=== PATIENT | male | born 1980 | race Caucasian/White ===

== ENCOUNTER 2021-09-25 14:05 | Emergency (ER) | payer OTHER, SELFPAY ==
[2021-09-25 14:11] VITALS: BP 135/68; PULSE 85; RESP 18; TEMP 36.8; O2SAT 98; BMI 35.4
--- NOTE | 2021-09-25 14:28 | ED.GENADULT ---
HPI - General Adult General Chief complaint: Animal Bite Stated complaint: cat bite Time Seen by Provider: 09/25/21 14:28 Source: patient Limitations: no limitations History of Present Illness HPI narrative: Patient presents to the ER after being bit and scratched by his own cat. Patient's CT is a house caput is not vaccinated. Patient received CT as a BB from an unknown source on Facebook. Incident occurred on Wednesday. Patient has no prior history of getting the rabies vaccine. Patient denies any allergies at this time no other complaints. Related Data Previous Rx's Medication Instructions Recorded amoxicillin 500 mg-potassium 1 tab PO TID #30 tab 09/25/21 clavulanate 125 mg tablet (Augmentin) Allergies Allergy/AdvReac Type Severity Reaction Status Date / Time No Known Allergies Allergy Unverified 07/11/20 16:18 Review of Systems Constitutional: Constitutional: Denies chills and Denies fever(s) Cardiovascular: Cardiovascular: Denies chest pain and Denies dyspnea Respiratory: Respiratory: Denies dyspnea Gastrointestinal: Gastrointestinal: Denies nausea and Denies vomiting Integumentary/Breasts: Comments: Multiple scratches to the right lower extremity 3 small puncture wounds are well healed on the right thigh PMFSH Past Medical History Attestation statement: The following information was validated with the patient. Social History Social History Advance Directives: No Advance Directives Information Provided: No Physical Exam Vital Signs: Vital Signs: Last Vital Signs Temp 98.3 F 09/25/21 14:11 Pulse 85 09/25/21 14:11 Resp 18 09/25/21 14:11 BP 135/68 09/25/21 14:11 Pulse Ox 98 09/25/21 14:11 BMI result Body Mass Index 35.4 vital signs have been reviewed as normal and appeared to be correct. Blood pressure normal. Heart rate normal. Respiration rate normal. Temperature normal. Oxygen saturation normal. Appearance: Alert. Oriented X3. No acute distress. Head: Normal external exam. Eyes: PERRLA. EOMI. Conjunctiva and sclera normal. Eyelids normal. ENT: Pharynx normal. Uvula midline. Moist mucous membranes. Neck: Soft full range of motion, no JVD CVS: Heart regular rate and rhythm no murmurs and rubs Respiratory: Breath sounds are clear to auscultation bilaterally. No accessory muscle use noted. Skin: Right leg scratch to the left lateral cabrera approximately 5-6 cm scratch to the quadriceps area 3-4 puncture wounds proximal to the right knee wounds are healing as incident happened on Wednesday Extremities: Patient is moving all extremities purposely Neuro: Oriented X 3. No motor deficit. No sensory deficit. Reflexes normal. Course Course Course Narrative: Cat bite Scratches Rabies vaccine early cellulitis 1 mL rabies vaccine IM 2100 units of rabies immune globulin Patient understands he needs to return for follow-up previous vaccine Discharge Plan Discharge Clinical Impression: Cat bite Qualifiers: Encounter type: initial encounter Qualified Code(s): W55.01XA - Bitten by cat, initial encounter Patient Disposition: Home, Self-Care Instructions: Animal Bite (ED), Rabies (ED) Additional Instructions: Return as directed by nursing for rabies vaccine Antibiotics as directed Return if increased redness fever chills Prescriptions: New amoxicillin-pot clavulanate [Augmentin] 500-125 mg tablet 1 tab PO TID Qty: 30 RF: 0
[2021-09-25 14:32] VITALS: BMI 35.3
[2021-09-25] MEDS: Rabies Immune Globulin/PF 900 UNIT/3 ML VIAL 2100 UNIT IM (14:57)
[2021-09-25] MEDS: Rabies Vaccine (PCEC)/PF 1 ML VIAL IM (15:00)
== END 2021-09-25 15:17 | disposition home or self-care (01) ==
PROVIDERS: Emergency Provider Emergency Medicine
DX: S71.151A Open bite, right thigh, initial encounter (principal); W55.01XA Bitten by cat, initial encounter; Y93.9 Activity, unspecified; Y92.9 Unspecified place or not applicable; Y99.9 Unspecified external cause status; Z20.3 Contact with and (suspected) exposure to rabies
CPT/HCPCS: 90375; 90471; 90472; 90675; 96372; 99283; 99284

== ENCOUNTER 2021-09-29 16:00 | Outpatient (REF) | payer OTHER, SELFPAY | END 2021-09-29 16:01 | disposition home or self-care (01) | LOC: HO.MDS 16:00 | PROVIDERS: Visit Provider Physician Assistant | DX: Z29.14 Encounter for prophylactic rabies immune globulin (principal); S81.851D Open bite, right lower leg, subsequent encounter; S80.811D Abrasion, right lower leg, subsequent encounter; W55.01XD Bitten by cat, subsequent encounter; W55.03XD Scratched by cat, subsequent encounter; Z20.3 Contact with and (suspected) exposure to rabies | CPT/HCPCS: 90471; 90675 ==

== ENCOUNTER 2021-10-03 16:38 | Outpatient (REF) | payer OTHER, SELFPAY | END 2021-10-03 16:39 | disposition home or self-care (01) | LOC: HO.MDS 16:38 | PROVIDERS: Visit Provider Physician Assistant | DX: Z29.14 Encounter for prophylactic rabies immune globulin (principal); S81.851D Open bite, right lower leg, subsequent encounter; S80.811D Abrasion, right lower leg, subsequent encounter; W55.01XD Bitten by cat, subsequent encounter; Z20.3 Contact with and (suspected) exposure to rabies | CPT/HCPCS: 90471; 90675 ==